=== PATIENT | male | born 1980 | race Caucasian/White ===

== ENCOUNTER 2018-02-26 17:26 | Inpatient (IN) | payer SELFPAY ==
[~2018-02-26] VITALS: Ht 167.6 cm; Wt 89.8 kg
[2018-02-26 18:26] LABS: BASOPHILS % 0.5 % (0.0-2.0); EOSINOPHILS % 0.2 % (0.0-5.0); HEMATOCRIT. 50.8 % (42.0-52.0); HEMOGLOBIN. 18.1 g/dL (14.0-18.0); LYMPHOCYTES % 12.6 % (20.0-50.0); MEAN CORPUSCULAR HEMOGLOBIN 29.5 pg (28.0-32.0); MEAN CORPUSCULAR VOLUME 83.1 fL (80.0-94.0); MEAN PLATELET VOLUME 7.8 fl (7.4-10.4); MONOCYTES % 8.7 % (2.0-8.0); PLATELET 221 x1000/uL (130-400); RED BLOOD CELL COUNT 6.11 mill/uL (4.7-6.1); RED CELL DISTRIBUTION WIDTH 14.4 % (11.6-14.6)
[2018-02-26 18:32] LABS: INR 2.2; PROTHROMBIN TIME 23.5 sec (9.4-11.6)
[2018-02-26 18:35] LABS: CHLORIDE 91 mEq/L (98-107)
[2018-02-26] MEDS ORDERED: SODIUM CHLORIDE 0.9% 1,000 ML IV ONE (20:02)
[2018-02-26] MEDS ORDERED: MORPHINE SULFATE 4 MG/ML CPJ (NOT FOR IM USE) IV STA (20:02)
[2018-02-26] MEDS ORDERED: ONDANSETRON HCL 4MG/2ML VIAL IV STA (20:02)
[2018-02-26] MEDS ORDERED: FAMOTIDINE 20MG/2ML VIAL IV STA (20:02)
[2018-02-26] MEDS ORDERED: ONDANSETRON HCL 4MG/2ML VIAL IV ONE (22:15)
[2018-02-26 22:36] LABS: CLARITY URINE CLEAR (CLEAR); COLOR URINE DARK YELLOW (YELLOW); KETONES URINE NEGATIVE (NEGATIVE); LEUKOCYTE ESTERASE URINE NEGATIVE (NEGATIVE); NITRITE URINE NEGATIVE (NEGATIVE); OCCULT BLOOD URINE 1+ (NEGATIVE); PH URINE 7.5 (4.5-8.0); PROTEIN URINE 1+ (NEGATIVE); SPECIFIC GRAVITY URINE 1.009 (1.005-1.030)
[2018-02-26 22:41] LABS: HEPATITIS B SURFACE ANTIGEN NEGATIVE
[2018-02-26 23:00] LABS: *AMPHETAMINES SCREEN URINE NEGATIVE (NEGATIVE); *BARBITURATES SCREEN URINE NEGATIVE (NEGATIVE)
[2018-02-26 23:01] LABS: *BENZODIAZEPINES SCREEN URINE NEGATIVE (NEGATIVE); *COCAINE SCREEN URINE NEGATIVE (NEGATIVE); CANNABINOID URINE SCREEN NEGATIVE (NEGATIVE); METHADONE URINE SCREEN NEGATIVE (NEGATIVE); OPIATES URINE SCREEN PRESUMTIVE POSITIVE (NEGATIVE); PHENCYCLIDINE URINE SCREEN NEGATIVE (NEGATIVE)
[2018-02-26 23:09] LABS: HEPATITIS B CORE AB IGM NEGATIVE
[2018-02-26 23:11] LABS: HEPATITIS A AB IGM NEGATIVE (NEGATIVE)
[2018-02-27] VITALS (8 sets, daily range): BP systolic 138–162; BP diastolic 85–114
[2018-02-27] MEDS ORDERED: ONDANSETRON HCL 4MG/2ML VIAL IV PRN (07:00)
[2018-02-27] MEDS ORDERED: MORPHINE SULFATE 4 MG/ML CPJ (NOT FOR IM USE) IV PRN (07:00)
[2018-02-27] MEDS ORDERED: ACETAMINOPHEN 325MG TABLET PO PRN ×2 (07:00→21:45)
[2018-02-27] MEDS ORDERED: DEXT 5%/0.45% NACL 1000ML 1,000 ML IV SCH (07:15)
[2018-02-27] MEDS ORDERED: PANTOPRAZOLE 80 MG in SODIUM CHLORIDE 0.9% 100 ML IV SCH (09:00)
[2018-02-27] MEDS ORDERED: OCTREOTIDE ACETATE 50 MCG/ML 1ML IV NR (14:00)
[2018-02-27] MEDS: FOLIC ACID 1 MG, THIAMINE HCL 100 MG, MVI, ADULT NO.1 10 ML in DEXTROSE 5% WATER 1,000 ML IV SCH ×4 (17:17)
[2018-02-27] MEDS: PANTOPRAZOLE SODIUM 40 MG/VIAL IV SCH (17:48)
[2018-02-27] MEDS ORDERED: AMLODIPINE 10MG TABLET PO NR (20:00)
[2018-02-28] MEDS: FOLIC ACID 1 MG, THIAMINE HCL 100 MG, MVI, ADULT NO.1 10 ML in DEXTROSE 5% WATER 1,000 ML IV SCH ×4 (03:50)
[2018-02-28 04:00] VITALS: BP 139/89
[2018-02-28 08:00] VITALS: BP 144/98
[2018-02-28 08:06] LABS: INR 1.3; PROTHROMBIN TIME 13.7 sec (9.4-11.6)
[2018-02-28 08:34] LABS: CHLORIDE 97 mEq/L (98-107)
[2018-02-28] MEDS ORDERED: AMLODIPINE 10MG TABLET PO SCH (09:00)
[2018-02-28] MEDS: PANTOPRAZOLE SODIUM 40 MG/VIAL IV SCH (09:34)
[2018-02-28 12:00] VITALS: BP 140/80
[2018-02-28 12:56] LABS: BASOPHILS % 0.2 % (0.0-2.0); EOSINOPHILS % 1.1 % (0.0-5.0); HEMATOCRIT. 46.2 % (42.0-52.0); MEAN CORPUSCULAR HEMOGLOBIN 29.8 pg (28.0-32.0); MEAN PLATELET VOLUME 8.3 fl (7.4-10.4); MONOCYTES % 11.2 % (2.0-8.0); NEUTROPHILS % 65.5 % (40.0-76.0); PLATELET 155 x1000/uL (130-400); RED BLOOD CELL COUNT 5.38 mill/uL (4.7-6.1); RED CELL DISTRIBUTION WIDTH 14.6 % (11.6-14.6)
== END 2018-02-28 14:05 | disposition left against medical advice (07) | DRG 241 ==
LOC: ER 17:26 → 6EST 20:44 → EDBEDREQ 20:47 → ENRESERV 22:29
PROVIDERS: ADMIT Hospitalist; ATTEND Hospitalist
DX: K29.21 Alcoholic gastritis with bleeding (principal); D68.4 Acquired coagulation factor deficiency; K76.0 Fatty (change of) liver, not elsewhere classified; B17.9 Acute viral hepatitis, unspecified; F17.210 Nicotine dependence, cigarettes, uncomplicated; I10 Essential (primary) hypertension; Z53.21 Procedure and treatment not carried out due to patient leaving prior to being seen by health care provider; F10.20 Alcohol dependence, uncomplicated; R74.0 Nonspecific elevation of levels of transaminase and lactic acid dehydrogenase [LDH]
CPT/HCPCS: 36415; 71045; 76705; 80053; 80076; 80305; 81003; 83690; 85025; 85610; 85730; 86705; 86709; 86803; 86850; 86900; 87340; 93005; 96374; 96375; 96376; 99285; C9113; G0482; J2270; J2354; J2405; J3411; J3490; J7030; J7040; J7050; J7070

== ENCOUNTER 2019-10-10 11:37 | Emergency (ER) | payer MEDICAID ==
[~2019-10-10] VITALS: Ht 165.1 cm; Wt 89.2 kg
[2019-10-10 16:38] VITALS: BP 161/106
== END 2019-10-10 19:30 | disposition left against medical advice (07) ==
LOC: ER 11:37
DX: R11.10 Vomiting, unspecified (principal); R07.9 Chest pain, unspecified; Z53.21 Procedure and treatment not carried out due to patient leaving prior to being seen by health care provider
CPT/HCPCS: 93005